=== PATIENT | male | born 1995 | race Caucasian/White ===

== ENCOUNTER 2017-11-13 21:30 | Emergency (ER) | payer OTHER ==
[2017-11-13 21:38] VITALS: BP 138/71; PULSE 94; RESP 16; TEMP 98.9
[2017-11-13] MEDS ORDERED: PROPARACAINE 0.5% OPHTH DROPS 15 ML BTL BOTH EYES STA (21:41)
--- NOTE | 2017-11-13 21:46 | ED ---
ENT HPI - General Chief complaint: ENT Stated complaint: FB Left eye Time Seen by Provider: 11/13/17 21:41 Source: patient, RN/MD, RN notes reviewed, old records reviewed Mode of arrival: ambulatory Limitations: no limitations - History of Present Illness Initial comments: 22-year-old male presents emergency for chief complaint of left eye pain. He reports that he his of metal Zosyn and Cipro past 3 days. 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 He reports that he thought that this occurred 3 days ago. He slept and the pain got worse. Patient reports no change in visual acuity. He states just been very irritating his eyes been watering. - Related Data Previous Rx's Medication Instructions Recorded Acetaminophen-Codeine 300-30mg 1 tab PO Q6H PRN #15 tablet 03/09/15 [Tylenol #3] Ibuprofen [Motrin] 600 mg PO Q8HR PRN #30 tab 03/09/15 Ciprofloxacin Ophth Soln [Cipro 1 drops LEFT EYE Q4HR #1 bottle 11/13/17 Ophth Soln] Allergies Allergy/AdvReac Type Severity Reaction Status Date / Time No Known Allergies Allergy Verified 11/13/17 21:38 Review of Systems ROS Statement: Those systems with pertinent positive or pertinent negative responses have been documented in the HPI. ROS Other: All systems not noted in ROS Statement are negative. Past Medical History Past Medical History: No Reported History History of Any Multi-Drug Resistant Organisms: None Reported Past Surgical History: No Surgical Hx Reported Past Psychological History: ADD/ADHD Smoking Status: Current every day smoker Past Alcohol Use History: Occasional Past Drug Use History: Marijuana General Exam - General Exam Comments Initial Comments: 22-year-old male. Alert. No distress. Limitations: no limitations General appearance: alert, in no apparent distress Head exam: Present: atraumatic, normocephalic, normal inspection Eye exam: Present: normal appearance, PERRL, EOMI, conjunctival injection (Left eye conjunctival injection. Evidence of foreign body at the 11 o'clock position of the iris.). Absent: scleral icterus, periorbital swelling ENT exam: Present: normal exam, mucous membranes moist Neck exam: Present: normal inspection Respiratory exam: Present: normal lung sounds bilaterally. Absent: respiratory distress, wheezes, rales, rhonchi, stridor Cardiovascular Exam: Present: regular rate GI/Abdominal exam: Present: soft, normal bowel sounds. Absent: distended, tenderness, guarding, rebound, rigid Extremities exam: Present: normal inspection, full ROM, normal capillary refill. Absent: tenderness, pedal edema, joint swelling, calf tenderness Back exam: Present: normal inspection Neurological exam: Present: alert, oriented X3, CN II-XII intact Psychiatric exam: Present: normal affect, normal mood Skin exam: Present: warm, dry, intact, normal color. Absent: rash Course Vital Signs 11/13/17 21:36 Temperature 98.9 F Pulse Rate 94 Respiratory 16 Rate Blood Pressure 138/71 O2 Sat by Pulse 98 Oximetry Medical Decision Making - Medical Decision Making 22-year-old male presents with left eye irritation. Foreign body noted at 11 o' clock position. Appears to be small piece of metal. He's had the symptoms for 3 days. I used proparacaine to anesthetize the eye. Flourescene eye exam was performed. No evidence of any other abrasions or foreign body. I used the [place] brush and removed the rust ring and the metal foreign body from the eye. Started the patient on Cipro drops. Discussed if there is any worsening signs or symptoms he should return or follow-up with ophthalmology. All questions answered return parameters were discussed. Disposition Clinical Impression: Foreign body of left eye Disposition: HOME SELF-CARE Condition: Good Instructions: Eye Foreign Body (ED) Additional Instructions: Patient is so apply the antibiotic ointment every 4 hours. Follow-up with ophthalmology if symptoms are worsening. Return to the emergency department if any alarming signs or symptoms occur. Prescriptions: Ciprofloxacin Ophth Soln [Cipro Ophth Soln] 1 drops LEFT EYE Q4HR #1 bottle Is patient prescribed a controlled substance at d/c from ED?: No If prescribed controlled substance>3 days was MAPS reviewed?: No When asked, does pt state using other controlled substances?: No Referrals: None,Stated [Primary Care Provider] - 1-2 days Jenny Ellison MD [STAFF PHYSICIAN] - 1-2 days Raul Thomas MD [STAFF PHYSICIAN] - 1-2 days Time of Disposition: 22:27
[2017-11-13] MEDS ORDERED: CIPROFLOXACIN 0.3% OPHTH SOLN 5 ML BTL LEFT EYE STA (22:05)
== END 2017-11-13 22:30 | disposition home or self-care (01) ==
LOC: EC 21:30
DX: T15.12XA Foreign body in conjunctival sac, left eye, initial encounter (principal); F17.200 Nicotine dependence, unspecified, uncomplicated
CPT/HCPCS: 65205; 99283

== ENCOUNTER 2018-09-12 23:29 | Emergency (ER) | payer OTHER ==
[2018-09-12 23:37] VITALS: TEMP 97.5
[2018-09-12] MEDS ORDERED: IBUPROFEN 600 MG TAB PO STA (23:47)
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
--- NOTE | 2018-09-13 00:17 | XR ---
EXAM: XR Right Ribs, 2 Views CLINICAL HISTORY: ITS.REASON XR Reason: Pain TECHNIQUE: Frontal and oblique views of the right ribs. COMPARISON: Chest radiographs 02/26/2015. FINDINGS: Lungs: Unremarkable as visualized. No consolidation. Pleural space: Unremarkable. No pneumothorax. Bones/joints: Unremarkable. No acute fracture. IMPRESSION: No displaced rib fracture.
[2018-09-13 00:56] VITALS: BP 123/65; PULSE 78; RESP 16
== END 2018-09-13 00:51 | disposition home or self-care (01) ==
LOC: EC 23:29
DX: R07.89 Other chest pain (principal); F17.200 Nicotine dependence, unspecified, uncomplicated; V86.92XA Unspecified occupant of snowmobile injured in nontraffic accident, initial encounter
CPT/HCPCS: 93005; 99284

== ENCOUNTER 2018-12-02 01:07 | Emergency (ER) | payer OTHER ==
[2018-12-02 08:18] LABS: Amphetamine Screen,Urine Not Detected (NotDetected); Barbiturate Screen,Urine Not Detected (NotDetected); Benzodiazepines Screen,Urine Not Detected (NotDetected); Cocaine Screen,Urine Not Detected (NotDetected); Methadone Screen, Urine Not Detected (NotDetected); Opiate Screen,Urine Not Detected (NotDetected); Oxycodone Screen, Urine Not Detected (NotDetected); Phencyclidine Screen,Urine Not Detected (NotDetected); Tricyclic Antidepressant,Urine Not Detected (NotDetected); Urn Cannabinoid Scrn Detected (NotDetected)
== END 2018-12-02 04:45 ==
LOC: EC 01:07
DX: F32.9 Major depressive disorder, single episode, unspecified (principal); R45.851 Suicidal ideations; F17.200 Nicotine dependence, unspecified, uncomplicated
CPT/HCPCS: 80306; 82075; 99285

== ENCOUNTER 2019-10-20 04:54 | Emergency (ER) | payer OTHER ==
[2019-10-20 04:59] VITALS: PULSE 85; TEMP 98.1
--- NOTE | 2019-10-20 05:25 | XR ---
EXAMINATION TYPE: XR chest 2V DATE OF EXAM: 10/20/2019 COMPARISON: 09/13/2018 HISTORY: Chest pain TECHNIQUE: FINDINGS: Heart and mediastinum are normal. Lungs are clear. Diaphragm is normal. Bony thorax appears normal. IMPRESSION: Normal chest. No change.
--- NOTE | 2019-10-20 05:25 | ED ---
Chest Pain HPI - General Chief Complaint: Chest Pain Stated Complaint: chest pain Time Seen by Provider: 10/20/19 04:58 Source: patient Mode of arrival: ambulatory Limitations: physical limitation - History of Present Illness Initial Comments: Андрей is a 24-year-old male with history of asthma as a child, patient reports he smokes 2 packs per day. Patient comes to the ER this morning for evaluation of 5 days of anterior chest wall tenderness. Patient reports sharp pain in the anterior central chest that is worse with deep inspiration, coughing or palpation. Patient denies any productive cough or shortness of breath. Denies any fevers or chills. Denies wheezing. Denies any exertional pain. Patient has no cardiac history. - Related Data Home Medications Medication Instructions Recorded Confirmed Albuterol Inhaler [Ventolin Hfa 1 - 2 puff INHALATION RT-Q6H PRN 10/20/19 10/20/19 Inhaler] Allergies Allergy/AdvReac Type Severity Reaction Status Date / Time No Known Allergies Allergy Verified 10/20/19 04:59 Review of Systems ROS Statement: Those systems with pertinent positive or pertinent negative responses have been documented in the HPI. ROS Other: All systems not noted in ROS Statement are negative. EKG Findings - EKG Comments: EKG Findings:: EKG was obtained due to complaint of chest pain, EKG was obtained at 5:05 AM, rate is 83 rhythm is sinus there is a normal axis, there are normal intervals, DE 120, care is 98, QTC 408, there are no acute ST elevations or depressions or snow evidence of acute ischemia or infarction. Past Medical History Past Medical History: No Reported History, Asthma History of Any Multi-Drug Resistant Organisms: None Reported Past Surgical History: No Surgical Hx Reported Past Psychological History: ADD/ADHD Smoking Status: Current every day smoker Past Alcohol Use History: Heavy, Occasional Past Drug Use History: Marijuana, Methamphetamine General Exam - General Exam Comments Initial Comments: Physical Exam GENERAL: Patient is well-developed and well-nourished. Patient is nontoxic and well-hydrated and is in no distress. HENT: Normocephalic, Atraumatic. EYES: PERRL, EOMI PULMONARY: Unlabored respirations. CARDIOVASCULAR: RRR Warm and well perfused extremities ABDOMEN: Non-distended SKIN: No rashes or bruising : Deferred NEUROLOGIC: Alert and oriented Normal speech Normal gait MUSCULOSKELETAL: Moving all extremities with no apparent injury PSYCHIATRIC: No SI/HI Limitations: no limitations Course Vital Signs 10/20/19 04:56 Temperature 98.1 F Pulse Rate 85 Respiratory 18 Rate Blood Pressure 131/81 O2 Sat by Pulse 98 Oximetry Chest Pain MDM - MDM Patient seen and evaluated history was obtained from patient Healthy 24-year-old male with 5 days of what sounds to be musculoskeletal chest wall pain worse with palpation or coughing Patient is not tachycardic, tachypneic, hypoxic or short of breath EKG is nonischemic Chest x-ray no acute findings Patient discharged home, advised to quit smoking Disposition Clinical Impression: Bronchitis, Atypical chest pain Disposition: HOME SELF-CARE Condition: Stable Instructions (If sedation given, give patient instructions): How to Stop Smoking (ED) Is patient prescribed a controlled substance at d/c from ED?: No Referrals: None,Stated [Primary Care Provider] - 1-2 days
[2019-10-20 05:40] VITALS: BP 131/70; RESP 16
== END 2019-10-20 05:41 | disposition home or self-care (01) ==
LOC: EC 04:54
DX: J45.909 Unspecified asthma, uncomplicated (principal); F17.210 Nicotine dependence, cigarettes, uncomplicated; Z79.899 Other long term (current) drug therapy
CPT/HCPCS: 71046; 99285

== ENCOUNTER 2020-01-03 13:17 | Inpatient (IN) | payer MEDICAID, OTHER ==
--- NOTE | 2020-01-03 14:30 | ED ---
Psych HPI - General Chief Complaint: Psychiatric Symptoms Stated Complaint: Petitioned Time Seen by Provider: 01/03/20 14:05 Source: patient, police Mode of arrival: ambulatory - History of Present Illness Initial Comments: Patient is 24-year-old male with history of depression presenting to emergency Department for psychiatric evaluation. Per [facility] security police officer, lisha garcía called 911 and requested a well check on his child who lives with his girlfriend. Patient also complained of suicide to the dispatcher. A security police officer was sent to the house where patient was on. More police officers arrived and secured the perimeter. Patient willingly decided to be evaluated. Patient states used to see a counselor and a psychiatrist but stopped seeing him recently due to insurance purposes. States he has been battling with depression since he was a young child. States he occasionally has thoughts of suicide but no actual plans. Denies any homicidal thoughts or ideations. States he would rather be in halfway in the ED. patient has no complaints. Patient is emotional during interview. - Related Data Home Medications Medication Instructions Recorded Confirmed Albuterol Sulfate [Ventolin HFA] 1 - 2 puff INHALATION RT-Q6H PRN 01/03/20 01/03/20 Allergies Allergy/AdvReac Type Severity Reaction Status Date / Time No Known Allergies Allergy Verified 01/03/20 17:01 Review of Systems ROS Statement: Those systems with pertinent positive or pertinent negative responses have been documented in the HPI. ROS Other: All systems not noted in ROS Statement are negative. Past Medical History Past Medical History: No Reported History, Asthma History of Any Multi-Drug Resistant Organisms: None Reported Past Surgical History: No Surgical Hx Reported Past Psychological History: ADD/ADHD Smoking Status: Current every day smoker Past Alcohol Use History: Heavy, Occasional Past Drug Use History: Marijuana, Methamphetamine General Exam Limitations: no limitations General appearance: alert, in no apparent distress Head exam: Present: atraumatic, normocephalic, normal inspection Eye exam: Present: normal appearance, PERRL, EOMI Pupils: Present: normal accommodation ENT exam: Present: normal exam, normal oropharynx, mucous membranes moist Neck exam: Present: normal inspection, full ROM. Absent: tenderness Respiratory exam: Present: normal lung sounds bilaterally. Absent: respiratory distress, wheezes Cardiovascular Exam: Present: regular rate, normal rhythm, normal heart sounds Extremities exam: Present: normal inspection, full ROM, normal capillary refill, other (Some healing abrasions in the hands.). Absent: tenderness Back exam: Present: normal inspection, full ROM. Absent: tenderness, CVA tenderness (R), CVA tenderness (L) Neurological exam: Present: alert, oriented X3 Psychiatric exam: Present: normal affect, depressed Skin exam: Present: warm, dry, intact, normal color Course Vital Signs 01/03/20 13:43 Temperature 97.3 F L Pulse Rate 92 Respiratory 18 Rate Blood Pressure 134/87 Medical Decision Making - Medical Decision Making Patient is a 24-year-old male with history of depression presenting to emergency Department for psychiatric evaluation. Patient brought to the ED via [place] [facility]. Physical examination is unremarkable aside from some healing abrasions on the posterior aspect of the bilateral hands. Patient does report thoughts of suicide but denies any plans. States his been doing this since he was a kid. EPS evaluated the patient and he will be admitted for further psychiatric management.Dr. Brandt signed the cert. Pt will be admitted. Patient was petitioned - Lab Data Lab Results 01/03/20 Range/Units 15:25 Urine Opiates Screen Not Detected (NotDetected) Ur Oxycodone Screen Not Detected (NotDetected) Urine Methadone Screen Not Detected (NotDetected) Ur Propoxyphene Screen Not Detected (NotDetected) Ur Barbiturates Screen Not Detected (NotDetected) U Tricyclic Antidepress Not Detected (NotDetected) Ur Phencyclidine Scrn Not Detected (NotDetected) Ur Amphetamines Screen Detected H (NotDetected) U Methamphetamines Scrn Not Detected (NotDetected) U Benzodiazepines Scrn Not Detected (NotDetected) Urine Cocaine Screen Not Detected (NotDetected) U Marijuana (THC) Screen Detected H (NotDetected) Disposition Clinical Impression: Adjustment reaction of adult life Disposition: ADMITTED IP TO THIS [facility] Condition: Stable Is patient prescribed a controlled substance at d/c from ED?: No Time of Disposition: 17:00
[2020-01-03 16:14] LABS: Amphetamine Screen,Urine Detected (NotDetected); Barbiturate Screen,Urine Not Detected (NotDetected); Benzodiazepines Screen,Urine Not Detected (NotDetected); Cocaine Screen,Urine Not Detected (NotDetected); Methadone Screen, Urine Not Detected (NotDetected); Opiate Screen,Urine Not Detected (NotDetected); Oxycodone Screen, Urine Not Detected (NotDetected); Phencyclidine Screen,Urine Not Detected (NotDetected); Tricyclic Antidepressant,Urine Not Detected (NotDetected); Urn Cannabinoid Scrn Detected (NotDetected)
[2020-01-03] MEDS ORDERED: ALBUTEROL INHALER 60 PUFF/8 GM INHALER (MHU) INHALATION PRN (17:11)
[2020-01-03] MEDS ORDERED: MAGNESIUM HYDROXIDE 2,400 MG/10 ML CUP PO PRN (17:11)
[2020-01-03] MEDS ORDERED: ACETAMINOPHEN TAB 325 MG TAB PO PRN (17:11)
[2020-01-03] MEDS ORDERED: LORazepam 1 MG TAB PO PRN (17:11)
[2020-01-03] MEDS ORDERED: MAG HYDROX/AL HYDROX/SIMETH 30 ML CUP PO PRN (17:11)
[2020-01-03] MEDS ORDERED: ZIPRASIDONE 20 MG VIAL IM PRN (17:11)
[2020-01-03] MEDS ORDERED: LORazepam 2 MG/ML INJ IM PRN (17:13)
--- NOTE | 2020-01-04 00:17 | P.PN ---
Progress Note - Text Progress Note Date: 01/03/20 patient refused evaluation at this time please contact [facility] when patient is willing to be interviewed
[2020-01-04 03:52] LABS: Glucose,Whole Blood 85 mg/dL (75-99)
[2020-01-04] MEDS: NICOTINE 14MG/24HR PATCH TRANSDERM SCH ×2 (10:19→15:21)
--- NOTE | 2020-01-04 12:51 | P.HP ---
Psychiatric H&P - . H&P Date: 01/04/20 History & Physical: IDENTIFYING DATA: This 24-year-old single male admitted involuntarily to the psychiatric unit HISTORY OF PRESENT ILLNESS: A superintendent police and his grandmother completed a Petition for Hospitalization. I attempted to interview Андрей but he would not speak to me. Later in the morning he admitted that he called emergency services and told the power tong operator that he was thinking about killing himself and his girlfriend. "I was talking stupid." However, he would not get out of bed or come to my office for an interview. I spoke to his grandmother and a telephone. His grandmother was not a good historian. The police officers Petition read "individual called 911 stating he was going to get a gun and when his child's mother comes on his property he will shoot him and then himself. Individual posted on [employer] a week ago stating he wanted to . Individual was carrying to weapons when he arrived on the scene." On her petition, his grandmother won't "he will tell me he took a bottle of something. That it wasn't enough. He should take more. Told me he wanted to commit suicide but was too chicken to. Has tried but just can't. He says he doesn't want to live and any day it might happen." His grandmother was very distressed over the telephone. She complained that he's been depressed and talking about suicide. He is "on drugs" and "drinking a lot." He broke up with a girlfriend, met another and his old girlfriend (the mother of his child) does not want him to see the child. His grandmother pleaded with him but he is refused mental health services. PAST PSYCHIATRIC HISTORY: There is no history of psychiatric hospitalizations. His grandmother took him to "counseling" when he was "14 or 15 years old" because he was having problems at school and "hollering" at his grandmother. She talked about "trouble with teachers". He met with the therapist for about "a year and a half" and "did well" until his father "got him back" and he went "downhill." He was court ordered again for outpatient treatment because he was "out of control" and violated probation. PAST MEDICAL HISTORY: She was unaware of history of major medical problems ALLERGIES: NO KNOWN DRUG ALLERGIES SUBSTANCE USE HISTORY: She described heavy drinking but she was unaware of which drugs he has been using. She talked about marijuana. His UDS was positive for amphetamines and marijuana. His blood alcohol level was 0. FAMILY PSYCHIATRIC/SUBSTANCE USE HISTORY: His grandmother has a history of depression. His father has history of alcohol and "drug" problems. His father has history of legal problems and his grandmother talked about the father (Chuck Cole) having to return to prison for probation violation. LEGAL HISTORY: He was involved with the juvenile justice system. His grandmother is unaware of current legal problems. SOCIAL HISTORY: His born out of wedlock and raised by his biological mother until he was "4 or 5 years old". His mother abandoned him when his father left the relationship and moved to [facility]. She told his grandmother that "she could not raise him." He has an older brother. He has a history of conduct problems at school with suspensions. He quit school when he was 17 years old. He does not have a GED. He has a 3 years old son. He was living with his grandmother intermittently until 6 months ago. She stated he cannot return to her house. She is unaware where he has been living and talked about him spending time living in his car. He has held intermittent unskilled jobs. He has no stable income. MENTAL STATUS EXAM: He presented as a young male who is laying in bed. He is disheveled. He would not become eye contact or answer questions. STRENGTHS: Good physical health WEAKNESSES: Lack of stable housing, lack of stable income, substance use prob lems IMPRESSION: He is a 23-year-old single male admitted to this psychiatric unit involuntarily with a history of suicidal and homicidal ideation. He is uncooperative and would not provide information about himself or his history. According to his mother's history depression alcohol and "drugged" problems. His UDS was positive for marijuana and amphetamines. He is distressed over conflict with his child's mother. He has a history of conduct problems at school as well as involvement with the juvenile legal system. In addition to the probable alcohol and substance use disorders he probably has a depressive disorder. PRINCIPLE DIAGNOSIS: Unspecified depressive disorder, rule out major depressive disorder, rule out bipolar disorder current episode depressed, alcohol use diso rder, amphetamine use disorder, conduct disorder childhood RECOMMENDATION: Admit the psychiatric unit voluntarily. Completed the second clinical certificate and proceeded with involuntary hospitalization. Consult medicine for initial physical exam and medical history. poultry offal worker to complete initial psychosocial assessment coordinate discharge and aftercare. Geodon 20 mg IM twice a day for agitation acute psychosis and Ativan 1 mg by mouth 3 times a day for anxiety or agitation. Discuss treatment with a antipsychotic and/or second-generation antipsychotic. Discuss a referral for residential substance abuse treatment. Encourage participation in therapeutic groups and activities. Evaluate clinical status response to treatment on a daily basis. Allergies Allergy/AdvReac Type Severity Reaction Status Date / Time No Known Allergies Allergy Verified 01/03/20 17:01 Vital Signs Temp 98.4 F 01/03/20 23:32 Pulse 157 H 01/04/20 06:59 Resp 18 01/04/20 06:59 BP 109/69 01/04/20 06:59 Pulse Ox 96 01/03/20 17:22 Intake & Output 01/03/20 01/04/20 01/04/20 18:59 06:59 18:59 Weight 86.183 kg Laboratory Last Values POC Glucose (mg/dL) 85 mg/dL (75-99) 01/04/20 03:50 POC Glu Animal Scientist ID Babita Magana 01/04/20 03:50 Urine Opiates Screen Not Detected (NotDetected) 01/03/20 15:25 Ur Oxycodone Screen Not Detected (NotDetected) 01/03/20 15:25 Urine Methadone Screen Not Detected (NotDetected) 01/03/20 15:25 Ur Propoxyphene Screen Not Detected (NotDetected) 01/03/20 15:25 Ur Barbiturates Screen Not Detected (NotDetected) 01/03/20 15:25 U Tricyclic Antidepress Not Detected (NotDetected) 01/03/20 15:25 Ur Phencyclidine Scrn Not Detected (NotDetected) 01/03/20 15:25 Ur Amphetamines Screen Detected (NotDetected) H 01/03/20 15:25 U Methamphetamines Scrn Not Detected (NotDetected) 01/03/20 15:25 U Benzodiazepines Scrn Not Detected (NotDetected) 01/03/20 15:25 Urine Cocaine Screen Not Detected (NotDetected) 01/03/20 15:25 U Marijuana (THC) Screen Detected (NotDetected) H 01/03/20 15:25 01/04/20 09:01 01/04/20 11:47 01/04/20 12:49
[2020-01-05] MEDS: NICOTINE 14MG/24HR PATCH TRANSDERM SCH (08:09)
[2020-01-05 09:16] LABS: Basophils % (A) 1 %; Eosinophils # (A) 0.1 k/uL (0-0.7); Eosinophils % (A) 1 %; HCT 51.8 % (39.0-53.0); HGB 17.8 gm/dL (13.0-17.5); Lymphocytes % (A) 26 %; MCH 34.5 pg (25.0-35.0); MCHC 34.3 g/dL (31.0-37.0); MCV 100.6 fL (80.0-100.0); Mean Platelet Volume 8.2; Monocytes # (A) 0.5 k/uL (0-1.0); Monocytes % (A) 6 %; Neutrophils # (A) 4.8 k/uL (1.3-7.7); Neutrophils % (A) 63 %; Platelet Count 173 k/uL (150-450); RBC 5.15 m/uL (4.30-5.90); RDW 12.4 % (11.5-15.5); WBC 7.7 k/uL (3.8-10.6)
[2020-01-05 09:30] LABS: ALT 22 U/L (4-49); AST 30 U/L (17-59); African American GFR (CKD) >90 (>60 ml/min/1.73 sqM); Albumin 4.5 g/dL (3.5-5.0); Alkaline Phosphatase 44 U/L (38-126); Anion Gap 11 mmol/L; Blood Urea Nitrogen 17 mg/dL (9-20); Calcium 9.7 mg/dL (8.4-10.2); Carbon Dioxide 27 mmol/L (22-30); Chloride 101 mmol/L (98-107); Cholesterol 180 mg/dL (<200); Glucose 140 mg/dL (74-99); HDL Cholesterol 48 mg/dL (40-60); LDL Cholesterol,Calculated 118 mg/dL (0-99); Non-African American GFR(CKD) >90 (>60 ml/min/1.73 sqM); Sodium 139 mmol/L (137-145); Total Bilirubin 0.7 mg/dL (0.2-1.3); Total Protein 7.2 g/dL (6.3-8.2); Triglycerides 69 mg/dL (<150)
--- NOTE | 2020-01-05 11:27 | P.PN ---
Progress Note - Text Progress Note Date: 01/05/20 Clinical Problems: Unspecified depressive disorder, rule out amphetamine induced depressive disorder, rule out amphetamine induced psychotic disorder, methamphetamine use disorder severe, alcohol use disorder moderate, conduct disorder of childhood. Interim history: I reviewed the medical record, interviewed the patient and discuss his treatment and treatment plan during team meeting. He was pleasant and cooperative today. He came to my office and engaged in conversation about the circumstances that resulted in this hospitalization and his past history. He admitted that he "made a mistake". He was unable to reach his "baby's mamma". He called 911 for welfare check but during in the conversation with the spray operator "said things I shouldn't have said." He denied that he had an intention to hurt himself, his girlfriend or his child. He expressed regret for making suicidal and homicidal statements. He minimizes alcohol use alleging that he last drank "maybe 2 weeks, 3 weeks, may be more." He admitted to using methamphetamine but was a vague about the amount and frequency. He denied IV use of methamphetamine. During the conversation he alleged that he obtained the methamphetamine from his father suggesting that his father was dealing. He is interested in a residential or outpatient substance abuse treatment. Mental status exam: He presented as a slightly disheveled appearing young male with long unkempt hair. He made intermittent eye contact but appeared to attend to the interview. He had no distinguishing features or prominent physical abnormalities. He had a blunted but bright facial expression. He showed no abnormality of psychomotor activity. His speech was spontaneous with decreased rate and rhythm. His affect was depressed. He denied current suicidal ideation, wishes or homicidal ideation. He denied feeling hopeless, helpless or worthless. He ruminated about his substance use and substance use problems. He did not express ideas reference, paranoid ideation or delusions. His thinking was concrete but his associations were coherent, logical and goal directed. He denied hallucinations did not appear to be responding to internal stimuli. Assessment: He is much less withdrawn, angry and guarded than on admission. He acknowledges a substance use problem and expressed interest in substance abuse treatment. I suspect that the depression and depressive symptoms as well as the suicidal homicidal statements of the result of his methamphetamine use. Plan: Continued psychiatric hospitalization. Continue safety precautions. Begin Zoloft 50 mg daily and titrated according to clinical response and tolerance. electrical maintenance worker to assist with referral to a substance abuse treatment program. Consider discharge after his deferral hearing. Encourage participation in therapeutic groups and activities. Evaluate clinical status response to treatment on a daily basis.
[2020-01-05 19:17] LABS: Hemoglobin A1C 5.4 % (4.0-6.0)
--- NOTE | 2020-01-05 23:11 | P.HPIM ---
History of Present Illness H&P Date: 01/05/20 Chief Complaint: medical evaluation 24 year old male with no significant past medical history patient comes in due to suicidal ideation , he reports being under alot of pre ssure, feeling anxious and depressed. he called the police and expressed to them that he was having emotional breakdown and suicidal ideation he denies having a plan or have attempted anything in the past, but admits to having suicidal thoughts all the time. he currently denies any physical complaints. denies any fever , chills, cough, chest pain , trouble breathing abd pain , nausea or vomiting Review of Systems Pertinent positives as noted in HPI. All other systems were reviewed and are negative Past Medical History Past Medical History: No Reported History, Asthma History of Any Multi-Drug Resistant Organisms: None Reported Past Surgical History: No Surgical Hx Reported Past Psychological History: ADD/ADHD Smoking Status: Current every day smoker Past Alcohol Use History: Heavy, Occasional Past Drug Use History: Marijuana, Methamphetamine - Past Family History family Family Medical History: No Reported History Medications and Allergies Home Medications Medication Instructions Recorded Confirmed Type Albuterol Sulfate [Ventolin HFA] 1 - 2 puff INHALATION RT-Q6H PRN 01/03/20 01/03/20 History Allergies Allergy/AdvReac Type Severity Reaction Status Date / Time No Known Allergies Allergy Verified 01/03/20 17:01 Physical Exam Vitals: Vital Signs Temp Pulse Resp BP 01/05/20 20:48 98.8 F 01/05/20 17:48 100.4 F H 01/05/20 13:00 98.0 F 01/05/20 06:29 98.7 F 92 16 131/62 Constitutional: No acute distress, conversant, pleasant Eyes: Anicteric sclerae, moist conjunctiva, no lid-lag Pupils equal round reactive to light ENMT: NC/AT Oropharynx clear, no erythema, or exudates Neck: Supple, FROM, no masses, or JVD No carotid bruits No thyromegaly Lungs: Clear to auscultation Clear to percussion Normal respiratory effort, no accessory muscle use Cardiovascular: Heart regular in rate and rhythm, No murmurs, gallops, or rubs No peripheral edema Abdominal: Soft Nontender, no guarding, rebound or rigidity Abdomen moving with respiration Normoactive bowel sounds No hepatomegaly, No splenomegaly No palpable mass No abdominal wall hernia noted Skin: Normal temperature, tone, texture, turgor No induration No subcutaneous nodules No rash, lesions No ulcers Extremities: No digital cyanosis No clubbing Pedal pulses intact and symmetrical Radial pulses intact and symmetrical No calf tenderness Psychiatric: Alert and oriented to person, place and time depressed affect fair judgement Neuro Muscles Strength 5/5 in all 4 extremities Sensation to light touch grossly present throughout Cranial nerves II-XII grossly intact No focal sensory deficits Lymphatics: no palpable cervical or supraclavicular , or inguinal lymph nodes Results CBC & Chem 7: 01/05/20 08:38 01/05/20 08:38 Labs: Abnormal Lab Results - Last 24 Hours (Table) 01/05/20 01/05/20 Range/Units 08:38 08:38 Hgb 17.8 H (13.0-17.5) gm/dL MCV 100.6 H (80.0-100.0) fL Glucose 140 H (74-99) mg/dL LDL Cholesterol, Calc 118 H (0-99) mg/dL TSH 0.084 L (0.465-4.680) mIU/L Assessment and Plan Assessment: 24 year old male with no significant past medical history , comes in due to suicidal thoughts. denies any physical complaints at this time suicidal thoughts depressed emotions management per psych heavy tobacco smoking alcohol abuse counseled to quit smoking , nicotine replacement therapy offered monitor for symptoms of alcohol withdrawal low risk for DVT , patient ambulatory low TSH, check free T4 follow up in 4-6 weeks on TSH secondary polycythemia secondary to heavy smoking Thank you for allowing us to participate in the care of this patient. We will follow peripherally. Do not hesitate to contact us with questions. Someone can be reached from the [facility] hospitalist group at all hours of the day at [phone].
[2020-01-06] MEDS: SERTRALINE 50 MG TAB PO SCH (08:18)
[2020-01-06] MEDS: NICOTINE 14MG/24HR PATCH TRANSDERM SCH (08:19)
--- NOTE | 2020-01-06 13:22 | P.PN ---
Progress Note - Text Progress Note Date: 01/06/20 Clinical Problems: Unspecified depressive disorder, rule out amphetamine induced depressive disorder, rule out amphetamine induced psychotic disorder, methamphetamine use disorder severe, alcohol use disorder moderate, conduct disorder of childhood. Interim history: I reviewed the medical record, interviewed the patient and discuss his treatment and treatment plan during team meeting. His primary concern was discharge and repeatedly asked me what he needs to do to "get out of here." He again talked about the circumstances like this hospitalization. He is unable to explain why he told the heading machine operator that he was planning to shoot his ex-girlfriend and himself. He excused his behavior alleging that he "always talks like that." She denied an intent to harm himself or his girlfriend. Alleged that he only uses methamphetamine on weekends and conceited that he "may have" made the phone call to the heading machine operator after used methamphetamine. He gave ambivalent answers about his commitment to substance abuse treatment. He would prefer outpatient but would enter a residential program if "I have to." Mental status exam: He presented as a slightly disheveled appearing young male with long unkempt hair. He made intermittent eye contact but appeared to attend to the interview. He had scars in the back of his left hand. He had a blunted but bright facial expression. He showed no abnormality of psychomotor activity. His speech was spontaneous with decreased rate and rhythm. His affect was depressed. He denied current suicidal ideation, wishes or homicidal ideation. He denied feeling hopeless, helpless or worthless. He ruminated about his substance use and substance use problems. He did not express ideas reference, paranoid ideation or delusions. His thinking was concrete but his associations were coherent, logical and goal directed. He denied hallucinations did not appear to be responding to internal stimuli. Assessment: He continues to minimize his methamphetamine use and appears ambivalent about substance abuse treatment. Plan: Continued psychiatric hospitalization. Continue safety precautions. His deferral hearing is scheduled for this morning. Continue Zoloft 50 mg daily and titrated according to clinical response and tolerance. plastics worker to assist with referral to a substance abuse treatment program. Consider discharge after his deferral hearing. Encourage participation in therapeutic groups and activities. Evaluate clinical status response to treatment on a daily basis.
[2020-01-07 01:58] VITALS: BP 148/81; PULSE 120; RESP 18
[2020-01-07] MEDS: NICOTINE 14MG/24HR PATCH TRANSDERM SCH (08:22)
[2020-01-07] MEDS: SERTRALINE 50 MG TAB PO SCH (08:22)
--- NOTE | 2020-01-07 11:47 | P.DS ---
Providers Date of admission: 01/03/20 16:08 Attending physician: Gurpreet Wilson MD Consults: 01/03/20 17:11 Consult Physician Routine Consulting Provider: [facility] Consult Reason/Comments: H&P and medical Do you want consulting provider notified?: Yes Primary care physician: Stated None - Discharge Diagnosis(es) (1) Methamphetamine use disorder, severe Current Visit: Yes Status: Chronic Priority: High (2) Amphetamine-induced mood disorder Current Visit: Yes Status: Resolved Priority: Medium (3) Alcohol use disorder, mild, abuse Current Visit: Yes Status: Chronic Priority: Medium Hospital Course: This 24-year-old single male admitted involuntarily to the psychiatric unit [employer] police launch commander and his grandmother completed a Petition for Hospitalization. I attempted to interview Андрей but he would not speak to me. Later in the morning he admitted that he called emergency services and told the draw bench operator helper that he was thinking about killing himself and his girlfriend. "I was talking stupid." However, he would not get out of bed or come to my office for an interview. I spoke to his grandmother and a telephone. His grandmother was not a good historian. The police officers Petition read "individual called 911 stating he was going to get a gun and when his child's mother comes on his property he will shoot him and then himself. Individual posted on [employer] a week ago stating he wanted to . Individual was carrying to weapons when he arrived on the scene." On her petition, his grandmother won't "he will tell me he took a bottle of something. That it wasn't enough. He should take more. Told me he wanted to commit suicide but was too chicken to. Has tried but just can't. He says he doesn't want to live and any day it might happen." His grandmother was very distressed over the telephone. She complained that he's been depressed and talking about suicide. He is "on drugs" and "drinking a lot." He broke up with a girlfriend, met another and his old girlfriend (the mother of his child) does not want him to see the child. His grandmother plea ded with him but he is refused mental health services. There is no history of psychiatric hospitalizations. His grandmother took him to "counseling" when he was "14 or 15 years old" because he was having problems at school and "hollering" at his grandmother. She talked about "trouble with teachers". He met with the therapist for about "a year and a half" and "did well" until his father "got him back" and he went "downhill." He was court ordered again for outpatient treatment because he was "out of control" and violated probation. We admitted him to psychiatric unit involuntarily. We provided a copy has a biopsychosocial assessment. Initially would not cooperate with the physical exam and the hospitalist only completed the examination on 01/05/2020. His medical problems include tobacco use and a low TSH. The etl consultant recommended to repeat the TSH in 4-6 weeks. His UDS on presentation to the ED was positive for methamphetamine and marijuana. His breath alcohol level was 0. He would not get out of his room or answer questions for the first day of hospitalization. After second day he is more cooperative. He remembers calling emergency services and stating that he was thinking of shooting his "baby momma" and himself. He alleged had initially called emergency services to get a "safety check" on the "baby momma" because she was not answering his telephone calls. He alleged that he "misspoke" and in retrospect realized it was "dumb". He repeatedly denied that he would harm himself or his ex-girlfriend. He was reluctant but eventually admitted to using methamphetamine. He was guarded about the amount and frequency alleging he only uses "on weekends". He admitted that he "may have" had been using methamphetamine when he called the cooling machine operator. We prescribed Zoloft 50 mg daily for the treatment of subjective complaints of depression. He reported no adverse effect to the initial dose. He expressed superficial interest in substance abuse treatment the child welfare social worker gave him information on contacting [facility]. At time of discharge she presented as a casually groomed young male who was pleasant on approach. He made eye contact and attended to the interview. He had no distinguishing features or prominent physical abnormalities. He had a blunted but bright facial expression. He was not agitated or restless. His speech was spontaneous with normal rate, rhythm and volume. His affect was stable and appropriate. He denied suicidal ideation or wishes. He denied homicidal ideation. He denied feeling hopeless, helpless or worthless. He did not express ideas reference, paranoid ideation or delusions. His thinking was concrete but his associations were coherent and logical. He denied hallucinations and did not appear to be responding to internal stimuli. DISPOSITION: We discharged with a prescription for Zoloft 50 mg daily and provide information on follow-up through [facility]. He will return to live with his grandmother. We encouraged him to call [facility] and scheduled residential substance abuse treatment. Patient Condition at Discharge: Stable Plan - Discharge Summary New Discharge Prescriptions: New Sertraline [Zoloft] 50 mg PO DAILY #30 tab Continue Albuterol Sulfate [Ventolin HFA] 1 - 2 puff INHALATION RT-Q6H PRN PRN Reason: Shortness Of Breath Discharge Medication List Albuterol Sulfate [Ventolin HFA] 1 - 2 puff INHALATION RT-Q6H PRN 01/03/20 [History] Sertraline [Zoloft] 50 mg PO DAILY #30 tab 01/07/20 [Rx] Follow up Appointment(s)/Referral(s): None,Stated [Primary Care Provider] - 1-2 days Patient Instructions/Handouts: Depression (DC), Methamphetamine Abuse (DC), Suicide Prevention (DC) Activity/Diet/Wound Care/Special Instructions: Activity and diet as tolerated. Avoid the use of street drugs and alcohol. Take all medications as prescribed. When you are in need of refills on your medications please contact your medical provider and/or outpatient psychiatrist to have this done. Please go to scheduled outpatient appointment for aftercare treatment. If symptoms return or become worse, call the crisis line at and/or go to the nearest emergency room for evaluation. Discharge Disposition: HOME SELF-CARE
[2020-01-07 12:54] VITALS: TEMP 97.8
== END 2020-01-07 12:55 | disposition home or self-care (01) | DRG 897 ==
LOC: EC 13:17 → 3MHU 16:08
PROVIDERS: ADMIT Psychiatry & Neurology Psychiatry; ATTEND Psychiatry & Neurology Psychiatry
DX: F15.14 Other stimulant abuse with stimulant-induced mood disorder (principal); R45.851 Suicidal ideations; F10.10 Alcohol abuse, uncomplicated; D75.1 Secondary polycythemia; F17.200 Nicotine dependence, unspecified, uncomplicated; F90.9 Attention-deficit hyperactivity disorder, unspecified type; F41.9 Anxiety disorder, unspecified; Z79.899 Other long term (current) drug therapy; Z71.6 Tobacco abuse counseling; Z81.8 Family history of other mental and behavioral disorders; Z81.1 Family history of alcohol abuse and dependence
CPT/HCPCS: 80053; 80061; 80306; 82075; 83036; 84439; 84443; 85025; 99285

== ENCOUNTER 2021-07-19 06:09 | Emergency (ER) | payer OTHER ==
[2021-07-19 06:14] VITALS: BP 127/74; PULSE 96; RESP 22; TEMP 99.2
[2021-07-19] MEDS ORDERED: IBUPROFEN 600 MG TAB PO STA (06:35)
[2021-07-19] MEDS ORDERED: ACETAMINOPHEN TAB 500 MG TAB PO STA (06:35)
--- NOTE | 2021-07-19 06:36 | ED ---
General Adult HPI - General Chief complaint: Headache Stated complaint: Covid Test Time Seen by Provider: 07/19/21 06:15 Source: patient Mode of arrival: ambulatory Limitations: no limitations - History of Present Illness Initial comments: 26-year-old male with a past medical history of marijuana and methamphetamine abuse, asthma presents to the emergency room for a chief complaint of wanting a COVID-19 swab. Patient states that yesterday he started to have nausea as well as body aches and aches in his back. He has had a headache and chills. He was exposed to COVID-19 by his girlfriend. He states he would like a COVID-19 test. He did not take Motrin or Tylenol.Patient has no other complaints at this time including shortness of breath, chest pain, abdominal pain, nausea or vomiting, headache, or visual changes. - Related Data Home Medications Medication Instructions Recorded Confirmed Albuterol Sulfate [Ventolin HFA] 1 - 2 puff INHALATION RT-Q6H PRN 01/03/20 01/03/20 Previous Rx's Medication Instructions Recorded Sertraline [Zoloft] 50 mg PO DAILY #30 tab 01/07/20 Allergies Allergy/AdvReac Type Severity Reaction Status Date / Time No Known Allergies Allergy Verified 07/19/21 06:14 Review of Systems ROS Statement: Those systems with pertinent positive or pertinent negative responses have been documented in the HPI. ROS Other: All systems not noted in ROS Statement are negative. Past Medical History Past Medical History: No Reported History, Asthma History of Any Multi-Drug Resistant Organisms: None Reported Past Surgical History: No Surgical Hx Reported Past Psychological History: ADD/ADHD, Anxiety Smoking Status: Current every day smoker Past Alcohol Use History: Heavy, Occasional Past Drug Use History: Marijuana, Methamphetamine - Past Family History family Family Medical History: No Reported History General Exam Limitations: no limitations General appearance: alert, in no apparent distress Head exam: Present: atraumatic Eye exam: Present: normal appearance, PERRL, EOMI. Absent: scleral icterus, conjunctival injection ENT exam: Present: normal exam, mucous membranes moist Neck exam: Present: normal inspection, full ROM. Absent: tenderness Respiratory exam: Present: normal lung sounds bilaterally. Absent: respiratory distress, wheezes Cardiovascular Exam: Present: regular rate, normal rhythm, normal heart sounds Course Vital Signs 07/19/21 06:10 Temperature 99.2 F Pulse Rate 96 Respiratory 22 Rate Blood Pressure 127/74 O2 Sat by Pulse 97 Oximetry Medical Decision Making - Medical Decision Making Patient did test positive for COVID-19. Patient will be given antibody infusion. At this time he is stable for outpatient follow-up with supportive treatment. He will return here for any worsening symptoms. - Lab Data Lab Results 07/19/21 Range/Units 06:35 Coronavirus (PCR) Detected A (Not Detectd) Disposition Clinical Impression: COVID Disposition: HOME SELF-CARE Condition: Good Instructions (If sedation given, give patient instructions): Coronavirus Disease 2019 (COVID-19) Additional Instructions: Please alternate Motrin and Tylenol up to every 3 hours for pain. Drink plenty of fluids. Follow-up with your doctor. Return to the emergency room for any worsening symptoms. Is patient prescribed a controlled substance at d/c from ED?: No Referrals: Leni Robledo MD [REFERRING] - 1-2 days Time of Disposition: 07:05
[2021-07-19] MEDS ORDERED: SODIUM CHLORIDE 0.9% 50 ML IVPB ONE (07:15)
[2021-07-19] MEDS ORDERED: BAMLANIVIMAB (EUA) 700 MG, ETESEVIMAB (EUA) 1,400 MG in SODIUM CHLORIDE 0.9% 100 ML IVPB ONE (07:45)
== END 2021-07-19 07:47 | disposition home or self-care (01) ==
LOC: EC 06:09
DX: U07.1 COVID-19 (principal); J45.909 Unspecified asthma, uncomplicated; F41.9 Anxiety disorder, unspecified; F90.9 Attention-deficit hyperactivity disorder, unspecified type; F17.200 Nicotine dependence, unspecified, uncomplicated; Z72.89 Other problems related to lifestyle; F12.90 Cannabis use, unspecified, uncomplicated; Z79.51 Long term (current) use of inhaled steroids
CPT/HCPCS: 87635; 99284

== ENCOUNTER 2021-09-23 21:39 | Emergency (ER) | payer OTHER ==
[2021-09-23 21:43] VITALS: RESP 18; TEMP 100.5
[2021-09-23] MEDS ORDERED: ACETAMINOPHEN TAB 500 MG TAB PO STA (21:56)
[2021-09-23] MEDS ORDERED: ONDANSETRON 4 MG TAB PO STA (21:56)
--- NOTE | 2021-09-23 22:02 | ED ---
General Adult HPI - General Chief complaint: Nausea/Vomiting/Diarrhea Stated complaint: Vomiting, diarrhea Time Seen by Provider: 09/23/21 21:46 Source: patient Mode of arrival: ambulatory - History of Present Illness Initial comments: This 26-year-old male presents emergency Department with nausea, vomiting, diarrhea and RUQ abdominal pain that began at 3 AM. Patient states he was woken from sleep with nausea, RUQ pain and diarrhea. Patient states he vomited at about 3:30 in the morning and again at 6 AM. Patient states he also experienced 2-3 episodes of diarrhea at 6 AM and 10 AM. Patient states he has not had any vomiting or diarrhea since, however he now does have a little bit of a headache along with colicky RUQ pain. Patient states he did have a headache earlier this morning that had a slow progression and onset. Patient states his headache is a little bit better now than it was in the morning, however it is still there. Was 7/10 and is now 5/10. He denies any radiation to any other quadrant, back or chest. Patient states he has also been experiencing chills and sweats throughout the day. He thinks he did have a fever, however did not take his tem perature. Patient states he did have COVID-19 on August 19. Patient states he does smoke a pack a day of cigarettes daily, however he denies daily marijuana use states it is just occasional. Patient states he has not eaten today due to his nausea and vomiting, however he has been drinking a lot of water. He denies taking any medication for symptoms. Patient denies any chest pain, shortness of breath, abdominal pain, double blurred vision, hemoptysis, hematochezia, visual changes, lightheadedness, dizziness, weakness, back pain, neck pain, change in bladder. Patient denies any fatty or greasy foods increasing his RUQ pain. - Related Data Home Medications Medication Instructions Recorded Confirmed Albuterol Sulfate [Ventolin HFA] 1 - 2 puff INHALATION RT-Q6H PRN 01/03/20 01/03/20 Previous Rx's Medication Instructions Recorded Sertraline [Zoloft] 50 mg PO DAILY #30 tab 01/07/20 Allergies Allergy/AdvReac Type Severity Reaction Status Date / Time No Known Allergies Allergy Verified 09/23/21 21:43 Review of Systems ROS Statement: Those systems with pertinent positive or pertinent negative responses have been documented in the HPI. ROS Other: All systems not noted in ROS Statement are negative. Past Medical History Past Medical History: No Reported History, Asthma History of Any Multi-Drug Resistant Organisms: None Reported Past Surgical History: No Surgical Hx Reported Past Psychological History: ADD/ADHD, Anxiety Smoking Status: Current every day smoker Past Alcohol Use History: Heavy, Occasional Past Drug Use History: Marijuana, Methamphetamine - Past Family History family Family Medical History: No Reported History General Exam General appearance: alert, in no apparent distress Head exam: Present: atraumatic, normocephalic, normal inspection Eye exam: Present: normal appearance, PERRL, EOMI. Absent: scleral icterus, conjunctival injection, periorbital swelling Pupils: Present: normal accommodation ENT exam: Present: normal oropharynx, mucous membranes moist Neck exam: Present: normal inspection, full ROM. Absent: tenderness, meningismus, lymphadenopathy Respiratory exam: Present: normal lung sounds bilaterally. Absent: respiratory distress, wheezes, rales, rhonchi, stridor Cardiovascular Exam: Present: regular rate, normal rhythm, normal heart sounds. Absent: systolic murmur, diastolic murmur, rubs, gallop, clicks GI/Abdominal exam: Present: soft, tenderness (Right upper quadrant tender to palpation, mild discomfort throughout all of abdomen to palpation. ), normal bowel sounds. Absent: distended, guarding, rebound, rigid Extremities exam: Present: full ROM, normal capillary refill. Absent: calf tenderness Back exam: Present: normal inspection, full ROM, tenderness (RUQ tender to palpation). Absent: CVA tenderness (R), CVA tenderness (L), paraspinal tenderness, vertebral tenderness Neurological exam: Present: alert, oriented X3, CN II-XII intact Psychiatric exam: Present: normal affect, normal mood Skin exam: Present: warm, dry, intact, normal color. Absent: rash Course Vital Signs 09/23/21 21:41 Temperature 100.5 F H Pulse Rate 113 H Respiratory 18 Rate Blood Pressure 127/78 O2 Sat by Pulse 97 Oximetry - Reevaluation(s) Reevaluation #1: 09/23/21 23:00 On initial evaluation, patient did refuse labs and ultrasound. He stated "I do n't have time to get that to just due to Covid and flu swabs and I'll leave. However, on both nasal swabs taken back negative patient stated he would like to receive the right upper quadrant ultrasound along with labs because "my girlfriend is here and is making me get all these tests in the more think about having pain up in the right side, the more feeling like it is worse so lets just do the testing." 09/23/21 23:30 When reevaluating the patient, he states he is still experiencing right upper quadrant pain, however has improved in intensity. His headache is alleviated. He denies any nausea at this time. 09/24/21 23:45 On reevaluation, patient states he got his ultrasound done. Patient states he still having some mild right upper quadrant discomfort, however he states it is not painful. Patient has an headache, nausea or vomiting at this time. 09/24/21 00:08 And reevaluation, patient states "I'm just ready to go home." Patient denies having any symptoms at this time. Patient denies any abdominal pain, headache, nausea or vomiting. Patient states he does have Zofran at home and does not want anymore. 09/24/21 00:25 Examination patient denies abdominal pain, headache or vomiting. Patient states he does feel like he is a little bit nauseous and is requesting one more Zofran before he goes just in case. Patient states he has been able to keep down water and a couple crackers while in the emergency department. Patient has not had any episodes of vomiting or diarrhea since yesterday morning at around 10:00 AM. She states the nausea has came and gone throughout the day Medical Decision Making - Medical Decision Making This 26-year-old male presents emergency Department with nausea, vomiting, diarrhea and right upper quadrant pain that began at 3 AM this morning. COVID- 19, influenza A/B not detected. Gallbladder ultrasound impression: Normal exam. No gallstones or dilated ducts. Labs with white blood cells 11.0, platelets 133, urine with 1+ bilirubin, 21 hyaline casts, specific gravity 1.038, and many mucus. After pain medications and fluids, patient states his pain has improved. Patient denies any headache, nausea, vomiting or right upper quadrant pain prior to discharge. - Lab Data Result diagrams: 09/23/21 23:15 09/23/21 23:49 Lab Results 0309/23/21 09/23/21 Range/Units 22:02 22:02 23:15 WBC 11.0 H (3.8-10.6) k/uL RBC 4.85 (4.30-5.90) m/uL Hgb 16.2 (13.0-17.5) gm/dL Hct 47.8 (39.0-53.0) % MCV 98.5 (80.0-100.0) fL MCH 33.3 (25.0-35.0) pg MCHC 33.8 (31.0-37.0) g/dL RDW 12.7 (11.5-15.5) % Plt Count 133 L (150-450) k/uL MPV 8.1 Neutrophils % 82 % Lymphocytes % 8 % Monocytes % 8 % Eosinophils % 1 % Basophils % 1 % Neutrophils # 9.0 H (1.3-7.7) k/uL Lymphocytes # 0.9 L (1.0-4.8) k/uL Monocytes # 0.8 (0-1.0) k/uL Eosinophils # 0.1 (0-0.7) k/uL Basophils # 0.1 (0-0.2) k/uL Sodium (137-145) mmol/L Potassium (3.5-5.1) mmol/L Chloride (98-107) mmol/L Carbon Dioxide (22-30) mmol/L Anion Gap mmol/L BUN (9-20) mg/dL Creatinine (0.66-1.25) mg/dL Est GFR (CKD-EPI)AfAm (>60 ml/min/1.73 sqM) Est GFR (CKD-EPI)NonAf (>60 ml/min/1.73 sqM) Glucose (74-99) mg/dL Calcium (8.4-10.2) mg/dL Total Bilirubin (0.2-1.3) mg/dL AST (17-59) U/L ALT (4-49) U/L Alkaline Phosphatase (38-126) U/L Total Protein (6.3-8.2) g/dL Albumin (3.5-5.0) g/dL Lipase (23-300) U/L Urine Color Urine Appearance (Clear) Urine pH (5.0-8.0) Ur Specific [place] (1.001-1.035) Urine Protein (Negative) Urine Glucose (UA) (Negative) Urine Ketones (Negative) Urine Blood (Negative) Urine Nitrite (Negative) Urine Bilirubin (Negative) Urine Urobilinogen (<2.0) mg/dL Ur Leukocyte Esterase (Negative) Urine RBC (0-5) /hpf Urine WBC (0-5) /hpf Ur Squamous Epith Cells (0-4) /hpf Hyaline Casts (0-2) /lpf Urine Mucus (None) /hpf Coronavirus (PCR) Not Detected (Not Detectd) Influenza Type A RNA Not Detected (Not Detectd) Influenza Type B (PCR) Not Detected (Not Detectd) 09/23/21 09/23/21 Range/Units 23:15 23:49 WBC (3.8-10.6) k/uL RBC (4.30-5.90) m/uL Hgb (13.0-17.5) gm/dL Hct (39.0-53.0) % MCV (80.0-100.0) fL MCH (25.0-35.0) pg MCHC (31.0-37.0) g/dL RDW (11.5-15.5) % Plt Count (150-450) k/uL MPV Neutrophils % % Lymphocytes % % Monocytes % % Eosinophils % % Basophils % % Neutrophils # (1.3-7.7) k/uL Lymphocytes # (1.0-4.8) k/uL Monocytes # (0-1.0) k/uL Eosinophils # (0-0.7) k/uL Basophils # (0-0.2) k/uL Sodium 135 L (137-145) mmol/L Potassium 3.5 (3.5-5.1) mmol/L Chloride 105 (98-107) mmol/L Carbon Dioxide 23 (22-30) mmol/L Anion Gap 7 mmol/L BUN 18 (9-20) mg/dL Creatinine 0.83 (0.66-1.25) mg/dL Est GFR (CKD-EPI)AfAm >90 (>60 ml/min/1.73 sqM) Est GFR (CKD-EPI)NonAf >90 (>60 ml/min/1.73 sqM) Glucose 94 (74-99) mg/dL Calcium 8.0 L (8.4-10.2) mg/dL Total Bilirubin 0.9 (0.2-1.3) mg/dL AST 28 (17-59) U/L ALT 28 (4-49) U/L Alkaline Phosphatase 32 L (38-126) U/L Total Protein 6.1 L (6.3-8.2) g/dL Albumin 3.6 (3.5-5.0) g/dL Lipase 49 (23-300) U/L Urine Color Yellow Urine Appearance Clear (Clear) Urine pH 6.0 (5.0-8.0) Ur Specific [place] 1.038 H (1.001-1.035) Urine Protein 1+ H (Negative) Urine Glucose (UA) Negative (Negative) Urine Ketones Negative (Negative) Urine Blood Negative (Negative) Urine Nitrite Negative (Negative) Urine Bilirubin 1+ H (Negative) Urine Urobilinogen 2.0 (<2.0) mg/dL Ur Leukocyte Esterase Negative (Negative) Urine RBC <1 (0-5) /hpf Urine WBC 4 (0-5) /hpf Ur Squamous Epith Cells 1 (0-4) /hpf Hyaline Casts 21 H (0-2) /lpf Urine Mucus Many H (None) /hpf Coronavirus (PCR) (Not Detectd) Influenza Type A RNA (Not Detectd) Influenza Type B (PCR) (Not Detectd) Disposition Clinical Impression: RUQ abdominal pain, Nausea and vomiting, Diarrhea, Fever Disposition: HOME SELF-CARE Condition: Stable Instructions (If sedation given, give patient instructions): Acute Nausea and Vomiting (ED), Acute Diarrhea (ED), Abdominal Pain (ED) Additional Instructions: Please return to the emergency department if symptoms return or any new, worsening, or concerning symptoms arise. Follow-up with your primary care provider next 1-2 days. Take Zofran as directed. Take Tylenol or Motrin for fever or headache as directed. Is patient prescribed a controlled substance at d/c from ED?: No Referrals: None,Stated [Primary Care Provider] - 1-2 days Guillermo Ellis [STAFF PHYSICIAN] - 1-2 days Mary Lemon MD [REFERRING] - 1-2 days Charlotte Rivas NPC [STAFF PHYSICIAN] - 1-2 days Time of Disposition: 00:25
[2021-09-23] MEDS ORDERED: SODIUM CHLORIDE 0.9% 1,000 ML IV STA (22:54)
[2021-09-23] MEDS ORDERED: KETOROLAC 15 MG/ML 1 ML VIAL IVP STA (23:02)
[2021-09-23 23:38] LABS: Basophils # (A) 0.1 k/uL (0-0.2); Basophils % (A) 1 %; Eosinophils # (A) 0.1 k/uL (0-0.7); Eosinophils % (A) 1 %; HCT 47.8 % (39.0-53.0); HGB 16.2 gm/dL (13.0-17.5); Lymphocytes # (A) 0.9 k/uL (1.0-4.8); Lymphocytes % (A) 8 %; MCH 33.3 pg (25.0-35.0); MCHC 33.8 g/dL (31.0-37.0); MCV 98.5 fL (80.0-100.0); Mean Platelet Volume 8.1; Monocytes # (A) 0.8 k/uL (0-1.0); Monocytes % (A) 8 %; Neutrophils % (A) 82 %; Platelet Count 133 k/uL (150-450); RBC 4.85 m/uL (4.30-5.90); RDW 12.7 % (11.5-15.5)
[2021-09-23 23:48] LABS: Appearance,Urine Clear (Clear); Bilirubin,Urine 1+ (Negative); Blood,Urine Negative (Negative); Color,Urine Yellow; Glucose,Urine (UA) Negative (Negative); Hyaline Casts,Urine 21 /lpf (0-2); Ketones,Urine Negative (Negative); Leukocyte Esterase,Urine Negative (Negative); Mucus,Urine Many /hpf; Nitrite,Urine Negative (Negative); Protein,Urine 1+ (Negative); RBC,Urine <1 /hpf (0-5); Specific Gravity,Urine 1.038 (1.001-1.035); Squamous Epithelial Cell,Urine 1 /hpf (0-4); WBC,Urine 4 /hpf (0-5)
--- NOTE | 2021-09-23 23:49 | US ---
EXAMINATION TYPE: US gallbladder DATE OF EXAM: 09/23/2021 COMPARISON: NONE CLINICAL HISTORY: pain. RUQ Pain with nausea and vomiting onset 3am EXAM MEASUREMENTS: Liver Length: 16.4 cm Gallbladder Wall: 0.2 cm CBD: 0.4 cm Right Kidney: 10.4 x 5.3 x 4.5 cm Pancreas: Obscured by bowel gas Liver: wnl Gallbladder: No stones seen Evidence for sonographic Hernandez's sign: No CBD: wnl Right Kidney: No hydronephrosis or masses seen No abnormalities seen at this time. IMPRESSION: Normal exam. No gallstones or dilated ducts.
[2021-09-24 00:20] LABS: ALT 28 U/L (4-49); AST 28 U/L (17-59); African American GFR (CKD) >90 (>60 ml/min/1.73 sqM); Albumin 3.6 g/dL (3.5-5.0); Alkaline Phosphatase 32 U/L (38-126); Anion Gap 7 mmol/L; Blood Urea Nitrogen 18 mg/dL (9-20); Carbon Dioxide 23 mmol/L (22-30); Chloride 105 mmol/L (98-107); Glucose 94 mg/dL (74-99); Lipase 49 U/L (23-300); Non-African American GFR(CKD) >90 (>60 ml/min/1.73 sqM); Potassium 3.5 mmol/L (3.5-5.1); Sodium 135 mmol/L (137-145); Total Bilirubin 0.9 mg/dL (0.2-1.3); Total Protein 6.1 g/dL (6.3-8.2)
[2021-09-24] MEDS ORDERED: ONDANSETRON 4 MG/2 ML VIAL IVP STA (00:24)
[2021-09-24 01:11] VITALS: BP 141/87; PULSE 87
== END 2021-09-24 01:12 | disposition home or self-care (01) ==
LOC: EC 21:39
DX: R10.11 Right upper quadrant pain (principal); R11.2 Nausea with vomiting, unspecified; R19.7 Diarrhea, unspecified; R50.9 Fever, unspecified; F90.9 Attention-deficit hyperactivity disorder, unspecified type; F41.9 Anxiety disorder, unspecified; F17.200 Nicotine dependence, unspecified, uncomplicated; F12.90 Cannabis use, unspecified, uncomplicated; Z20.822 Contact with and (suspected) exposure to COVID-19
CPT/HCPCS: 99284; 96374; 96375; 36415; 80053; 83690; 85025; 81001; 87502; 87635; 76705; J2405; J1885

== ENCOUNTER 2021-11-22 16:57 | Emergency (ER) | payer OTHER ==
[2021-11-22 17:35] VITALS: BP 122/68; PULSE 100; RESP 16; TEMP 98.2
[2021-11-22 18:41] LABS: Basophils % (A) 0 %; Eosinophils # (A) 0.1 k/uL (0-0.7); Eosinophils % (A) 1 %; HCT 48.3 % (39.0-53.0); HGB 16.2 gm/dL (13.0-17.5); Lymphocytes # (A) 1.3 k/uL (1.0-4.8); Lymphocytes % (A) 15 %; MCH 33.3 pg (25.0-35.0); MCHC 33.5 g/dL (31.0-37.0); MCV 99.4 fL (80.0-100.0); Mean Platelet Volume 7.7; Monocytes # (A) 0.4 k/uL (0-1.0); Monocytes % (A) 4 %; Neutrophils # (A) 6.6 k/uL (1.3-7.7); Neutrophils % (A) 77 %; Platelet Count 185 k/uL (150-450); RBC 4.86 m/uL (4.30-5.90); WBC 8.5 k/uL (3.8-10.6)
[2021-11-22 18:51] LABS: African American GFR (CKD) >90 (>60 ml/min/1.73 sqM); Anion Gap 6 mmol/L; Blood Urea Nitrogen 12 mg/dL (9-20); Calcium 9.8 mg/dL (8.4-10.2); Carbon Dioxide 24 mmol/L (22-30); Chloride 107 mmol/L (98-107); Glucose 112 mg/dL (74-99); Non-African American GFR(CKD) >90 (>60 ml/min/1.73 sqM); Potassium 4.1 mmol/L (3.5-5.1); Sodium 137 mmol/L (137-145)
--- NOTE | 2021-11-22 19:34 | ED ---
General Adult HPI - General Chief complaint: Dizziness Stated complaint: Dizziness Time Seen by Provider: 11/22/21 19:19 Source: patient, RN notes reviewed Mode of arrival: ambulatory Limitations: no limitations - History of Present Illness Initial comments: This is a pleasant 26-year-old male states he got lightheaded at work and started getting some body aches. He is also complaining of low backache. Patient thought he had a fever. Is been no sore throat. No cough. No earache. No neck stiffness. No skin rash or lesions. Patient states she had COVID-19 at the end of last year and states the symptoms feel similar. Mild headache, subjective low-grade fever. no changes in vision or hearing, no sore throat or difficulty with speech, no neck pain, no chest pain or shortness of breath, no abdominal pain, no nausea or vomiting, no changes in urination or bowel movements, no numbness or tingling, no extremity pain, no skin rashes or lesions. - Related Data Home Medications Medication Instructions Recorded Confirmed Albuterol Sulfate [Ventolin HFA] 1 - 2 puff INHALATION RT-Q6H PRN 01/03/20 01/03/20 Previous Rx's Medication Instructions Recorded Sertraline [Zoloft] 50 mg PO DAILY #30 tab 01/07/20 Allergies Allergy/AdvReac Type Severity Reaction Status Date / Time No Known Allergies Allergy Verified 11/22/21 17:32 Review of Systems ROS Statement: Those systems with pertinent positive or pertinent negative responses have been documented in the HPI. ROS Other: All systems not noted in ROS Statement are negative. Past Medical History Past Medical History: No Reported History, Asthma History of Any Multi-Drug Resistant Organisms: None Reported Past Surgical History: No Surgical Hx Reported Past Psychological History: ADD/ADHD, Anxiety Smoking Status: Current every day smoker Past Alcohol Use History: None Reported Past Drug Use History: None Reported - Past Family History family Family Medical History: No Reported History General Exam Limitations: no limitations General appearance: alert, in no apparent distress Head exam: Present: atraumatic, normocephalic, normal inspection Eye exam: Present: normal appearance, PERRL, EOMI. Absent: scleral icterus, conjunctival injection, periorbital swelling ENT exam: Present: normal exam, normal oropharynx, mucous membranes moist, TM's normal bilaterally, normal external ear exam. Absent: mucous membranes dry Neck exam: Present: normal inspection, full ROM. Absent: tenderness, meningismus, lymphadenopathy Respiratory exam: Present: normal lung sounds bilaterally. Absent: respiratory distress, wheezes, rales, rhonchi, stridor, chest wall tenderness, accessory muscle use, decreased breath sounds, prolonged expiratory Cardiovascular Exam: Present: regular rate, normal rhythm, normal heart sounds. Absent: systolic murmur, diastolic murmur, rubs, gallop, clicks GI/Abdominal exam: Present: soft, normal bowel sounds. Absent: distended, tenderness, guarding, rebound, rigid Extremities exam: Present: normal inspection, full ROM, normal capillary refill. Absent: tenderness, pedal edema, joint swelling, calf tenderness Back exam: Present: normal inspection Neurological exam: Present: alert, oriented X3, CN II-XII intact Psychiatric exam: Present: normal affect, normal mood Skin exam: Present: warm, dry, intact, normal color. Absent: rash Course Vital Signs 11/22/21 17:32 Temperature 98.2 F Pulse Rate 100 Respiratory 16 Rate Blood Pressure 122/68 O2 Sat by Pulse 97 Oximetry - Reevaluation(s) Reevaluation #1: 11/22/21 19:46 Patient actually feeling better by time I saw him. He is in no distress. Vital signs stable, patient afebrile. Patient states he did drink fluid from the time of symptom onset. This does raise a suspicion of possible dehydration. Of course the patient's subjective low-grade fever and bodyaches raise the suspicion of viral syndrome. Medical Decision Making - Medical Decision Making Possible viral syndrome. Patient improved after hydration. Patient in no distress at this time. Patient states this feels similar to COVID-19 when he espinal d an last year. He has no respiratory distress. No upper airway issues. No chest pain. No nausea or vomiting. Looks well. Symptoms are improved and mild. Certainly this could be a false negative COVID-19 test or even influenza test. Discussed possibility. Patient was complaining of back ache and body aches. I'm going to add on a urinalysis just to be complete. Patient has no dysuria or penile discharge. No testicular pain. Patient was told to return to the ER for any signs or symptoms worsen. Told to return immediately if any other problems arise. All questions answered. Treatment plan discussed. Patient in agreement Every effort has been made to ensure accuracy of this dictation. However, due to the limitations of electronic medical records and dictation devices, errors in charting still occur. Supervising physician is Dr. Hopkins - Lab Data Result diagrams: 11/22/21 18:27 11/22/21 18:27 Lab Results 11/22/21 11/22/21 11/22/21 Range/Units 17:37 17:37 18:27 WBC 8.5 (3.8-10.6) k/uL RBC 4.86 (4.30-5.90) m/uL Hgb 16.2 (13.0-17.5) gm/dL Hct 48.3 (39.0-53.0) % MCV 99.4 (80.0-100.0) fL MCH 33.3 (25.0-35.0) pg MCHC 33.5 (31.0-37.0) g/dL RDW 13.0 (11.5-15.5) % Plt Count 185 (150-450) k/uL MPV 7.7 Neutrophils % 77 % Lymphocytes % 15 % Monocytes % 4 % Eosinophils % 1 % Basophils % 0 % Neutrophils # 6.6 (1.3-7.7) k/uL Lymphocytes # 1.3 (1.0-4.8) k/uL Monocytes # 0.4 (0-1.0) k/uL Eosinophils # 0.1 (0-0.7) k/uL Basophils # 0.0 (0-0.2) k/uL Sodium (137-145) mmol/L Potassium (3.5-5.1) mmol/L Chloride (98-107) mmol/L Carbon Dioxide (22-30) mmol/L Anion Gap mmol/L BUN (9-20) mg/dL Creatinine (0.66-1.25) mg/dL Est GFR (CKD-EPI)AfAm (>60 ml/min/1.73 sqM) Est GFR (CKD-EPI)NonAf (>60 ml/min/1.73 sqM) Glucose (74-99) mg/dL Calcium (8.4-10.2) mg/dL Urine Color Urine Appearance (Clear) Urine pH (5.0-8.0) Ur Specific [place] (1.001-1.035) Urine Protein (Negative) Urine Glucose (UA) (Negative) Urine Ketones (Negative) Urine Blood (Negative) Urine Nitrite (Negative) Urine Bilirubin (Negative) Urine Urobilinogen (<2.0) mg/dL Ur Leukocyte Esterase (Negative) Coronavirus (PCR) Not Detected (Not Detectd) Influenza Type A RNA Not Detected (Not Detectd) Influenza Type B (PCR) Not Detected (Not Detectd) 11/22/21 11/22/21 Range/Units 18:27 19:32 WBC (3.8-10.6) k/uL RBC (4.30-5.90) m/uL Hgb (13.0-17.5) gm/dL Hct (39.0-53.0) % MCV (80.0-100.0) fL MCH (25.0-35.0) pg MCHC (31.0-37.0) g/dL RDW (11.5-15.5) % Plt Count (150-450) k/uL MPV Neutrophils % % Lymphocytes % % Monocytes % % Eosinophils % % Basophils % % Neutrophils # (1.3-7.7) k/uL Lymphocytes # (1.0-4.8) k/uL Monocytes # (0-1.0) k/uL Eosinophils # (0-0.7) k/uL Basophils # (0-0.2) k/uL Sodium 137 (137-145) mmol/L Potassium 4.1 (3.5-5.1) mmol/L Chloride 107 (98-107) mmol/L Carbon Dioxide 24 (22-30) mmol/L Anion Gap 6 mmol/L BUN 12 (9-20) mg/dL Creatinine 0.90 (0.66-1.25) mg/dL Est GFR (CKD-EPI)AfAm >90 (>60 ml/min/1.73 sqM) Est GFR (CKD-EPI)NonAf >90 (>60 ml/min/1.73 sqM) Glucose 112 H (74-99) mg/dL Calcium 9.8 (8.4-10.2) mg/dL Urine Color Yellow Urine Appearance Clear (Clear) Urine pH 6.0 (5.0-8.0) Ur Specific [place] 1.030 (1.001-1.035) Urine Protein Trace H (Negative) Urine Glucose (UA) Negative (Negative) Urine Ketones Negative (Negative) Urine Blood Negative (Negative) Urine Nitrite Negative (Negative) Urine Bilirubin Negative (Negative) Urine Urobilinogen 2.0 (<2.0) mg/dL Ur Leukocyte Esterase Negative (Negative) Coronavirus (PCR) (Not Detectd) Influenza Type A RNA (Not Detectd) Influenza Type B (PCR) (Not Detectd) Disposition Clinical Impression: Dehydration, Viral syndrome Disposition: HOME SELF-CARE Condition: Stable Instructions (If sedation given, give patient instructions): Dehydration (ED), Viral Syndrome (ED) Additional Instructions: Follow-up with your regular physician as directed. Return to the ER immediately if any symptoms worsen, new symptoms arise, or any other problems develop. Is patient prescribed a controlled substance at d/c from ED?: No Referrals: Guillermo Ellis [STAFF PHYSICIAN] - 11/27/21 Time of Disposition: 19:30
[2021-11-22 19:45] LABS: Appearance,Urine Clear (Clear); Bilirubin,Urine Negative (Negative); Blood,Urine Negative (Negative); Color,Urine Yellow; Glucose,Urine (UA) Negative (Negative); Ketones,Urine Negative (Negative); Leukocyte Esterase,Urine Negative (Negative); Nitrite,Urine Negative (Negative); Protein,Urine Trace (Negative)
== END 2021-11-22 19:53 | disposition home or self-care (01) ==
LOC: EC 16:57
DX: E86.0 Dehydration (principal); B34.9 Viral infection, unspecified; M54.50 Low back pain, unspecified; F17.200 Nicotine dependence, unspecified, uncomplicated; J45.909 Unspecified asthma, uncomplicated; Z20.822 Contact with and (suspected) exposure to COVID-19
CPT/HCPCS: 36415; 80048; 81003; 85025; 87502; 87635; 93005; 99284

== ENCOUNTER 2023-08-25 20:25 | Emergency (ER) | payer BC, OTHER ==
[2023-08-25 20:49] VITALS: BP 149/87; PULSE 81; RESP 18; TEMP 98.7
--- NOTE | 2023-08-25 21:08 | ED ---
ENT HPI - General Chief complaint: Dental/Oral Stated complaint: Tooth pain Time Seen by Provider: 08/25/23 20:37 Source: patient Mode of arrival: ambulatory Limitations: no limitations - History of Present Illness Initial comments: 28-year-old male presented to the ED with a chief complaint of dental pain. Patient states he has had ongoing intermittent dental pain for " a while" however states over the past 2 weeks has had increasing pain. Denies fevers. Denies difficulty swallowing. Denies dyspnea. No other complaints at this time. - Related Data Home Medications Medication Instructions Recorded Confirmed Albuterol Sulfate [Ventolin HFA] 1 - 2 puff INHALATION RT-Q6H PRN 01/03/20 11/24/21 hydrOXYzine pamoate [hydrOXYzine 25 mg PO BID 11/24/21 11/24/21 PAMOATE] Previous Rx's Medication Instructions Recorded Sertraline [Zoloft] 50 mg PO DAILY #30 tab 01/07/20 Cyclobenzaprine [Flexeril] 10 mg PO TID PRN #15 tab 11/24/21 Ibuprofen [Motrin] 600 mg PO Q8HR PRN #20 tab 11/24/21 Acetaminophen Tab [Tylenol] 500 mg PO Q6H PRN #60 tablet 08/25/23 Amoxic-Pot Clav 875-125Mg 1 tab PO Q12HR #20 tab 08/25/23 [Augmentin 875-125] Ibuprofen [Motrin] 800 mg PO Q6HR #30 tab 08/25/23 Allergies Allergy/AdvReac Type Severity Reaction Status Date / Time No Known Allergies Allergy Verified 08/25/23 20:35 Review of Systems ROS Statement: Those systems with pertinent positive or pertinent negative responses have been documented in the HPI. ROS Other: All systems not noted in ROS Statement are negative. Past Medical History Past Medical History: Asthma History of Any Multi-Drug Resistant Organisms: None Reported Past Surgical History: No Surgical Hx Reported Past Psychological History: ADD/ADHD, Anxiety Smoking Status: Current every day smoker Past Alcohol Use History: Occasional Past Drug Use History: None Reported - Past Family History family Family Medical History: No Reported History General Exam Limitations: no limitations General appearance: alert, in no apparent distress Eye exam: Present: normal appearance ENT exam: Present: other (Poor dentition. Notable dental carry over the lower right molar without evidence of surrounding abscess. No significant oropharyngeal swelling. No stridor. Tolerating secretions.) Neck exam: Present: normal inspection Respiratory exam: Present: normal lung sounds bilaterally Cardiovascular Exam: Present: regular rate, normal rhythm GI/Abdominal exam: Present: soft Neurological exam: Present: alert, oriented X3 Skin exam: Present: warm, dry Course Vital Signs 08/25/23 20:34 Temperature 98.7 F Pulse Rate 81 Respiratory 18 Rate Blood Pressure 149/87 O2 Sat by Pulse 97 Oximetry Medical Decision Making - Medical Decision Making Was pt. sent in by a medical professional or institution (ORVILLE Dennis, RETAIL CLERK, urgent care, hospital, or half-way...) When possible be specific @ -No Did you speak to anyone other than the patient for history (EMS, parent, family, police, friend...)? What history was obtained from this source @ -No Did you review nursing and triage notes (agree or disagree)? Why? @ -I reviewed and agree with nursing and triage notes Were old charts reviewed (outside hosp., previous admission, EMS record, old EKG, old radiological studies, urgent care reports/EKG's, half-way records)? Report findings @ -No old charts were reviewed Differential Diagnosis (chest pain, altered mental status, abdominal pain women, abdominal pain men, vaginal bleeding, weakness, fever, dyspnea, syncope, headache, dizziness, GI bleed, back pain, seizure, CVA, palpatations, mental health, musculoskeletal)? @ -Ludwigs angina, ANUG, periapical abscess EKG interpreted by me (3pts min.). @ -As above X-rays interpreted by me (1pt min.). @ -None done CT interpreted by me (1pt min.). @ -None done U/S interpreted by me (1pt. min.). @ -None done What testing was considered but not performed or refused? (CT, X-rays, U/S, labs)? Why? @ -None What meds were considered but not given or refused? Why? @ -None Did you discuss the management of the patient with other professionals (professionals i.e. ORVILLE Dennis, RETAIL CLERK, lab, RT, psych nurse, sexual assault social worker, harbor master, teacher, operations officer, field nurse case manager)? Give summary @ -No Was smoking cessation discussed for >3mins.? @ -No Was critical care preformed (if so, how long)? @ -No Were there social determinants of health that impacted care today? How? (Homelessness, low income, unemployed, alcoholism, drug addiction, transportation, low edu. Level, literacy, decrease access to med. care, retirement, rehab)? @ -No Was there de-escalation of care discussed even if they declined (Discuss DNR or withdrawal of care, Hospice)? DNR status @ -No What co-morbidities impacted this encounter? (DM, HTN, Smoking, COPD, CAD, Cancer, CVA, ARF, Chemo, Hep., AIDS, mental health diagnosis, sleep apnea, morbid obesity)? @ -None Was patient admitted / discharged? Hospital course, mention meds given and route, prescriptions, significant lab abnormalities, going to OR and other pertinent info. @ -Discharge 28-year-old male presented to the ED with a chief complaint of dental pain recen tly worsening over the last states he has not followed up with a dentist. Patient reports that he would just like pain meds and antibiotics. Exam did show poor dentition with dental caries however otherwise unremarkable. No significant oropharyngeal swelling. No dyspnea or stridor. Tolerating secretions. Provided prescription for ibuprofen, Tylenol, Augmentin. Discussed importance of following up with dentist. Discussed return precautions with patient who verbalized agreement. At this time vital signs stable, afebrile. Undiagnosed new problem with uncertain prognosis? @ -No Drug Therapy requiring intensive monitoring for toxicity (Heparin, Nitro, Insulin, Cardizem)? @ -No Were any procedures done? @ -No Diagnosis/symptom? @ -Dental pain Acute, or Chronic, or Acute on Chronic? @ -Acute on chronic Uncomplicated (without systemic symptoms) or Complicated (systemic symptoms)? @ -Uncomplicated Side effects of treatment? @ -No Exacerbation, Progression, or Severe Exacerbation? @ -No Poses a threat to life or bodily function? How? (Chest pain, [place], [place], pneumonia, PE, COPD, DKA, ARF, appy, cholecystitis, CVA, Diverticulitis, Homicidal, Suicidal, threat to staff... and all critical care pts) @ -No Disposition Clinical Impression: Pain, dental Disposition: HOME SELF-CARE Condition: Good Instructions (If sedation given, give patient instructions): Toothache (ED) Additional Instructions: Please return to the Emergency Department if symptoms worsen or any other concerns. Please follow-up with a dentist. Prescriptions: Amoxic-Pot Clav 875-125Mg [Augmentin 875-125] 1 tab PO Q12HR #20 tab Ibuprofen [Motrin] 800 mg PO Q6HR #30 tab Acetaminophen Tab [Tylenol] 500 mg PO Q6H PRN #60 tablet PRN Reason: Pain Is patient prescribed a controlled substance at d/c from ED?: No Referrals: None,Stated [Primary Care Provider] - 1-2 days Time of Disposition: 21:13
[2023-08-25] MEDS ORDERED: KETOROLAC 15 MG/ML 1 ML VIAL IM STA (21:14)
[2023-08-25] MEDS ORDERED: ACET/COD 300 MG/30 MG STARTER PACK 6 TAB BTL PO STA (21:15)
== END 2023-08-25 21:26 | disposition home or self-care (01) ==
LOC: EC 20:25
DX: K02.9 Dental caries, unspecified (principal); J45.909 Unspecified asthma, uncomplicated; F17.200 Nicotine dependence, unspecified, uncomplicated; Z86.59 Personal history of other mental and behavioral disorders
CPT/HCPCS: 99282; 96372; J1885

== ENCOUNTER 2024-09-27 00:21 | Emergency (ER) | payer OTHER ==
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
[2024-09-27] MEDS: ACETAMINOPHEN TAB 325 MG TAB PO STA (01:06)
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
[2024-09-27 03:11] VITALS: BP 107/55; RESP 19
[2024-09-27 03:13] VITALS: PULSE 72; TEMP 97.7
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
== END 2024-09-27 03:34 | disposition home or self-care (01) ==
LOC: EC 00:21
DX: S69.92XA Unspecified injury of left wrist, hand and finger(s), initial encounter (principal); F17.200 Nicotine dependence, unspecified, uncomplicated; V67.5XXA Driver of heavy transport vehicle injured in collision with fixed or stationary object in traffic accident, initial encounter; Y92.410 Unspecified street and highway as the place of occurrence of the external cause
CPT/HCPCS: 29125; 70450; 72125; 99284